=== PATIENT | male | born 1960 | race Caucasian/White ===

== ENCOUNTER → 2016-10-17 | Outpatient (CLI) | payer OTHER ==
--- NOTE | 2016-10-17 14:37 | KCIC ---
PROCEDURE MRI right knee without contrast dated 10/17/2016. HISTORY Right knee pain and swelling. TECHNIQUE Routine multiplanar multisequence MR imaging performed. COMPARISON None. FINDINGS Moderate tricompartmental hypertrophic change with prominent marginal osteophytes. Thinning and surface irregularity of the articular cartilage throughout. Broad zones of full-thickness cartilage loss with subchondral edema over the weightbearing surfaces medial femoral condyle and medial tibial plateau. Full thickness cartilage loss at the lateral patellar and lateral femoral trochlea and medial femoral trochlea and trochlear groove. Small joint effusion. Small popliteal cyst. No intra-articular loose body. Anterior cruciate and posterior cruciate ligaments are intact. Medial and lateral collateral complexes are intact. Iliotibial band, popliteus tendon and pes anserine complex are intact. Quadriceps and patellar tendon are intact. There is mild superficial infrapatellar edema, nonspecific. No abnormality of the medial or lateral retinaculum. There are prominent superficial venous varicosities the medial knee. Blunted morphology and ill definition of the posterior horn and body of medial meniscus. The medial meniscal body is extruded into the medial gutter. There is also some linear signal in the substance of the posterior horn. Anterior horn is grossly intact. Lateral meniscus is normal in morphology and signal. IMPRESSION - Complex degenerative tear posterior horn and body of medial meniscus. - Moderate tricompartmental degenerative arthrosis and chondromalacia. There is full-thickness cartilage loss of the medial and anterior compartments. - Small joint effusion and small popliteal cyst. Electronically signed by: Xander Choe (Oct 17, 2016 14:35:56)
== END | disposition home or self-care (01) ==
LOC: KCIC MRI 13:41
PROVIDERS: ATTEND Nurse Practitioner Family
DX: S83.241A Other tear of medial meniscus, current injury, right knee, initial encounter (principal); I86.8 Varicose veins of other specified sites; M17.11 Unilateral primary osteoarthritis, right knee; M94.261 Chondromalacia, right knee; M25.461 Effusion, right knee; M71.21 Synovial cyst of popliteal space [Baker], right knee; M25.761 Osteophyte, right knee; X58.XXXA Exposure to other specified factors, initial encounter; Y93.89 Activity, other specified; Y92.89 Other specified places as the place of occurrence of the external cause; Y99.8 Other external cause status
CPT/HCPCS: 73721